=== PATIENT | female | born 1955 | race Asian ===

== ENCOUNTER 2020-08-06 14:24 | Emergency (ER) | payer OTHER ==
[~2020-08-06] VITALS: Ht 149.9 cm; Wt 80.0 kg
[2020-08-06] MEDS ORDERED: SIMV10TA97 PO (14:40)
[2020-08-06] MEDS ORDERED: DILT180C52 PO (14:40)
[2020-08-06] MEDS ORDERED: KAYEX60 PO (14:40)
[2020-08-06] MEDS ORDERED: ATEN-72 PO (14:40)
[2020-08-06 15:31] LABS: BASOPHILS % (AUTO) 1.2 % (0.0-2.0); EOSINOPHILS % (AUTO) 5.4 % (1.0-6.0); HEMATOCRIT 25.4 % (36-46); HEMOGLOBIN 8.2 g/dL (12.0-16.0); LYMPHOCYTES # (AUTO) 1.8 K/uL (1.0-4.8); LYMPHOCYTES % (AUTO) 20.1 % (22.0-44.0); MEAN CORPUSCULAR HEMOGLOBIN 29.3 pg (26.0-34.0); MEAN CORPUSCULAR HGB CONC 32.2 G/dL (31.0-37.0); MEAN CORPUSCULAR VOLUME 91 fL (80-100); MONOCYTES # (AUTO) 0.6 K/uL (0.1-1.0); MONOCYTES % (AUTO) 6.9 % (2.0-9.0); NEUTROPHILS # (AUTO) 5.8 K/uL (1.8-7.7); NEUTROPHILS % (AUTO) 66.4 % (40.0-70.0); PLATELET COUNT (AUTO) 185 K/uL (150-450); RED BLOOD CELL COUNT(AUTO) 2.79 MIL/uL (4.00-5.20); RED CELL DISTRIBUTION WIDTH 14.4 % (11.5-14.5)
[2020-08-06 15:44] LABS: CALCIUM, TOTAL 7.7 mg/dL (8.8-10.5); CREATININE 6.89 mg/dL (0.60-1.30); POTASSIUM 4.9 mmol/L (3.5-5.1)
[2020-08-06 15:48] LABS: APPEARANCE,URINE CLEAR (CLEAR); BILIRUBIN,URINE NEGATIVE (NEGATIVE); GLUCOSE, URINE (UA) 100 mg/dL (NEGATIVE); KETONES,URINE NEGATIVE (NEGATIVE); LEUKOCYTE ESTERASE ,URINE NEGATIVE (NEGATIVE); NITRATE,URINE NEGATIVE (NEGATIVE); OCCULT BLOOD,URINE MODERATE (NEGATIVE); PROTEIN,URINE SEE CONFIRM (NEGATIVE); UROBILINOGEN,URINE 0.2 mg/dL (<=1.0)
[2020-08-06 15:51] LABS: SULFOSALICYLIC ACID,URINE 1+ (Negative)
[2020-08-06 15:52] LABS: ALBUMIN 3.5 g/dL (3.4-5.0); BILIRUBIN,TOTAL 0.2 mg/dL (0.1-1.0); TOTAL PROTEIN, SERUM 7.2 g/dL (6.4-8.2)
[2020-08-06 15:53] LABS: BACTERIA,URINE None Seen /HPF (None Seen); SQUAMOUS EPITHELIAL CELL,UR Few /LPF (None Seen); WBC,URINE 0-2 /HPF (0-5)
[2020-08-06 17:27] VITALS: BP 135/55
== END 2020-08-06 17:48 | disposition home or self-care (01) ==
LOC: EMS 14:24
DX: I13.11 Hypertensive heart and chronic kidney disease without heart failure, with stage 5 chronic kidney disease, or end stage renal disease (principal); N18.6 End stage renal disease; D64.89 Other specified anemias
CPT/HCPCS: 93005; 99284